=== PATIENT | female | born 1995 | race Hispanic/Latino ===

== ENCOUNTER 2018-10-18 15:49 | Day surgery (SDC) | payer SELFPAY ==
[2018-10-18 16:30] VITALS: BP 150/98; TEMP 98.3; BMI 36.6
--- NOTE | 2018-10-18 17:02 | PDOC.LDHP ---
Labor and Delivery H&P Chief complaint: other (RUQ, back pain) HPI: 23 yo LAF EDC+ 12/20/17 presents c/o 24 hr. h/o RUQ pain with radiation to her back. Has had nausea and subjective fever, denies bleeding, LOF or emesis. Current gestational age (weeks): 31 Due date: 12/20/18 Dating criteria: last menstrual period Grav: 1 Para: 0 OB History Details: PNC in [place], reportedly uncomplicated. Current complications: none Abnormal US findings: No Past Medical History: gallbladder 'sludge", kidney stones Current medications: pre-daniel vitamins Previous surgical history: none Allergies/Adverse Reactions: Allergies Allergy/AdvReac Type Severity Reaction Status Date / Time No Known Allergies Allergy Unverified 10/18/18 16:33 Social history: none - Physical Exam Vital signs reviewed and normal: yes General: resting Heart: RRR Lungs: CTAB Abdomen: NTTP Extremeties: no edema FHT: variability present [place] contractions every: no regular UCs seen - OB Labs Blood type: unknown RH: unknown Antibody Screen: unknown HIV: unknown RPR: unknown HEPSAg: unknown 1 hour GCT: unknown - Assessment L&D Assessment: labor (no evidence of PTL at this time, RUQ and back pain, h/o kidney stones and gallbladder disease) - Plan Plan: other (Check CBC, Chem 21 and UA)
[2018-10-18 17:29] LABS: Bilirubin Negative (Negative); Blood, Urine Negative (Negative); Clarity TURBID (Clear); Glucose, Urine (Dipstick) Negative (Negative); Leukocyte Negative (Negative); Nitrite Negative (Negative); Protein, Urine (Dipstick) Trace mg/dL (Neg-Trace); Specific Gravity, Urine 1.034 (1.002-1.036); pH, Urine 5.5 (5.0-9.0)
[2018-10-18 17:39] LABS: #Basophils 0.1 thou/uL (0.0-0.2); #Eosinphils 0.1 thou/uL (0.0-0.7); #Lymphocytes 1.7 thou/uL (1.20-3.40); #Monocytes 0.8 thou/uL (0.11-0.59); #Neutrophils 8.6 thou/uL (1.40-6.50); %Basophils 0.6 % (0.0-1.0); %Lymphocytes 14.8 % (21.0-51.0); %Monocytes 6.9 % (0.0-10.0); %Neutrophils 76.7 % (42.0-75.0); Hemoglobin 11.9 g/dL (12.0-16.0); Mean Corpuscular HGB CONC 34.6 g/dL (32.0-36.0); Mean Corpuscular Hemoglobin 31.1 pg (27.0-31.0); Mean Corpuscular Volume 89.9 fL (78.0-98.0); Mean Platelet Volume 7.9 fL (7.4-10.4); Platelet Count 366 thou/uL (130-400); RBC Distribution Width 11.6 % (11.5-14.5); Red Blood Cell (RBC) Count 3.84 mill/uL (4.20-5.40); White Blood Cell (WBC) Count 11.2 thou/uL (4.8-10.8)
[2018-10-18 17:58] LABS: ALT (SGPT) 15 U/L (8-55); AST (SGOT) 18 U/L (5-34); Albumin 3.5 g/dL (3.5-5.0); Alkaline Phosphatase 104 U/L (40-150); Anion Gap 13 mmol/L (10-20); BUN (Urea Nitrogen) 6 mg/dL (7.0-18.7); Bilirubin, Total 0.5 mg/dL (0.2-1.2); Calc. Creatinine Clearance 214 mL/min (70-130); Calcium 9.5 mg/dL (7.8-10.44); Carbon Dioxide 22 mmol/L (22-29); Chloride 106 mmol/L (98-107); Estimated GFR-MDRD Greater than 90; Globulin 3.5 g/dL (2.4-3.5); Glucose 96 mg/dL (70-105); Sodium 137 mmol/L (136-145)
[2018-10-18] MEDS ORDERED: Promethazine HCl 25 MG/ML VIAL IM SCH (19:00)
[2018-10-18] MEDS ORDERED: Butorphanol Tartrate 1 MG/ML VIAL IM SCH (19:00)
--- NOTE | 2018-10-18 19:08 | PDOC.EVN ---
Event Note - Event Note Event Note: PT is a23yo female just arrived from [place] 2days ago with abdominal and back pain that she has had for months. Initial assessment concerned with possible gallbladder or kidney etiologies resulting in pain. CMP,ua,cbc all normal except urine with ketones and very concentrated. no elevations in lft, normal creatinine. There is not significant elevation in the white count. Fetus is reassuring and reactive. no evidence of labor. On exam pt has significant pain with deviation of uterus to the left. Pt reports alot of pain with movement and activity. Neg hughes's tonight. PT will be discharged with IM stadol 2mg and phenergan 25mg. She will be returning to [place] in the near future. Then she will follow with her doctor.
== END 2018-10-18 19:21 | disposition home or self-care (01) ==
LOC: L&D/OP 15:49
PROVIDERS: ATTEND Obstetrics & Gynecology
DX: O99.89 Other specified diseases and conditions complicating pregnancy, childbirth and the puerperium (principal); R10.11 Right upper quadrant pain; M54.9 Dorsalgia, unspecified; Z3A.31 31 weeks gestation of pregnancy; Z79.899 Other long term (current) drug therapy
CPT/HCPCS: 36415; 80053; 81003; 85025; 96372; 99284; J0595; J2550